=== PATIENT | male | born 1960 | race African-American/Black ===

== ENCOUNTER 2016-09-11 11:50 | Emergency (ER) | payer BC | END 2016-09-11 12:36 | disposition home or self-care (01) | LOC: ER 11:50 | DX: K04.7 Periapical abscess without sinus (principal); G82.20 Paraplegia, unspecified; Z88.0 Allergy status to penicillin; Z91.041 Radiographic dye allergy status; Z91.09 Other allergy status, other than to drugs and biological substances | CPT/HCPCS: 96372; 99282 ==